=== PATIENT | female | born 1990 | race Caucasian/White ===

== ENCOUNTER 2019-02-01 12:29 | Outpatient (CLI) | payer MEDICAID | END 2019-02-01 14:15 | disposition home or self-care (01) | LOC: OBT 12:29 → L-D 12:29 → OBT 14:15 | DX: O24.419 Gestational diabetes mellitus in pregnancy, unspecified control (principal); Z3A.36 36 weeks gestation of pregnancy | CPT/HCPCS: 76815 ==

== ENCOUNTER 2019-02-17 12:19 | Outpatient (CLI) | payer MEDICAID | END 2019-02-17 13:40 | disposition home or self-care (01) | LOC: OBT 12:19 → L-D 12:19 → OBT 13:40 | DX: O24.410 Gestational diabetes mellitus in pregnancy, diet controlled (principal); Z3A.39 39 weeks gestation of pregnancy | CPT/HCPCS: 76818 ==

== ENCOUNTER 2019-02-19 16:14 | Inpatient (IN) | payer MEDICAID ==
[2019-02-19] MEDS: LACTATED RINGER'S 1,000 ML IV ×2 (17:49→21:00)
[2019-02-19 17:52] LABS: ADD MAN DIFF? NO
[2019-02-19 17:54] LABS: WHITE BLOOD COUNT 10.9 10^3/ul (4.8-10.8)
[2019-02-19 17:54] LABS: BASOPHILS % 0.2 % (0.0-2.0); EOSINOPHILS # 0.1 10^3/ul (0.0-0.5); EOSINOPHILS % 0.9 % (0.0-7.0); HEMATOCRIT 36.2 % (37.0-47.0); HEMOGLOBIN 12.5 g/dl (12.0-16.0); LYMPHOCYTES # 3.2 10^3/ul (0.8-2.9); LYMPHOCYTES % 29.6 % (15.0-51.0); MEAN CORPUSCULAR HEMOGLOBIN 29.8 pg (29.0-33.0); MEAN CORPUSCULAR HGB CONC 34.5 g/dl (32.0-37.0); MEAN CORPUSCULAR VOLUME 86.2 fl (82.0-101.0); MEAN PLATELET VOLUME 11.4 fl (7.4-10.4); MONOCYTE # 0.6 10^3/ul (0.3-0.9); MONOCYTES % 5.9 % (0.0-11.0); NEUTROPHIL # 6.8 10^3/ul (1.6-7.5); NEUTROPHILS % 62.9 % (39.0-77.0); PLATELET COUNT 232 10^3/UL (140-415); RED CELL DISTRIBUTION WIDTH 12.7 % (11.5-14.5)
[2019-02-19] MEDS ORDERED: CARBOPROST 250 MCG INJ IM (18:00)
[2019-02-19] MEDS ORDERED: LIDOCAINE 1% (MPF) 30 ML INJ INJ (18:00)
[2019-02-19] MEDS ORDERED: MISOPROSTOL 200 MCG TAB PR (18:00)
[2019-02-19] MEDS ORDERED: BUTORPHANOL 2 MG INJ IV (18:00)
[2019-02-19] MEDS ORDERED: OXYTOCIN 30 UNITS/LR 500 ML IV ×2 (18:00)
[2019-02-19] MEDS ORDERED: METHYLERGONOVINE 0.2 MG INJ IM (18:00)
[2019-02-19] MEDS: DEXTROSE 5%-LR 1,000 ML IV ×2 (18:11→22:23)
[2019-02-19 18:21] LABS: INR 0.94; PROTIME 12.7 Sec (11.9-14.9)
[2019-02-19 18:36] LABS: HEPATITIS B SURFACE ANTIGEN NEGATIVE (NEGATIVE)
[2019-02-19] MEDS: MISOPROSTOL 50 MCG CAPSULE PO (18:52)
[2019-02-19] MEDS ORDERED: FENTAnyl 2MCG/ML-ROPIV 0.2% 100 ML (21:00)
[2019-02-19] MEDS ORDERED: NALOXONE (0.4 MG/ML) INJ IV (21:30)
[2019-02-19] MEDS: OXYTOCIN 30 UNITS/LR 500 ML IV (23:53)
[2019-02-20] MEDS: FENTAnyl 2MCG/ML-ROPIV 0.2% 100 ML BAG EPI (03:50)
[2019-02-20] MEDS: OXYTOCIN 30 UNITS/LR 500 ML IV ×2 (06:37→12:18)
[2019-02-20] MEDS ORDERED: CARBOPROST 250 MCG INJ IM (07:00)
[2019-02-20] MEDS ORDERED: METHYLERGONOVINE 0.2 MG INJ IM (07:00)
[2019-02-20] MEDS ORDERED: DIBUCAINE 1% 30 GM OINT TOP (07:00)
[2019-02-20] MEDS ORDERED: OXYTOCIN 30 UNITS/LR 500 ML IV (07:00)
[2019-02-20] MEDS ORDERED: ONDANSETRON 4 MG INJ IV (07:00)
[2019-02-20] MEDS ORDERED: ACETAMINOPHEN 325 MG TAB PO (07:00)
[2019-02-20] MEDS ORDERED: MISOPROSTOL 200 MCG TAB PR (07:00)
[2019-02-20] MEDS: IBUPROFEN 600 MG TAB PO ×3 (08:52→22:54)
[2019-02-20] MEDS: LACTATED RINGER'S 1,000 ML IV* ×2 (09:30→14:52)
[2019-02-20] MEDS: BENZOCAINE 20% 56 ML SPRAY TOP (10:27)
[2019-02-20] MEDS: LANOLIN HPA 1 PKT TOP (10:27)
[2019-02-20] MEDS: WITCH HAZEL/GLYCERIN PAD PR (10:28)
[2019-02-20] MEDS: ACETAMINOPHEN 325 MG TAB PO ×2 (10:38→17:49)
[2019-02-20 20:39] LABS: RAPID PLASMA REAGIN NONREACTIVE (NR)
[2019-02-20] MEDS: SENNA/DOCUSATE NA (8.6MG/50MG) TAB PO (21:29)
[2019-02-20] MEDS: MAGNESIUM HYDROXIDE 30ML CUP PO (21:30)
[2019-02-21] MEDS: IBUPROFEN 600 MG TAB PO ×2 (05:18→21:58)
[2019-02-21 08:36] LABS: ADD MAN DIFF? NO
[2019-02-21 08:44] LABS: BASOPHILS % 0.2 % (0.0-2.0); EOSINOPHILS # 0.1 10^3/ul (0.0-0.5); EOSINOPHILS % 0.8 % (0.0-7.0); HEMOGLOBIN 9.5 g/dl (12.0-16.0); LYMPHOCYTES # 2.7 10^3/ul (0.8-2.9); LYMPHOCYTES % 24.9 % (15.0-51.0); MEAN CORPUSCULAR HEMOGLOBIN 29.6 pg (29.0-33.0); MEAN CORPUSCULAR HGB CONC 33.9 g/dl (32.0-37.0); MEAN CORPUSCULAR VOLUME 87.2 fl (82.0-101.0); MEAN PLATELET VOLUME 11.5 fl (7.4-10.4); MONOCYTE # 0.6 10^3/ul (0.3-0.9); MONOCYTES % 5.3 % (0.0-11.0); NEUTROPHIL # 7.3 10^3/ul (1.6-7.5); NEUTROPHILS % 68.2 % (39.0-77.0); PLATELET COUNT 208 10^3/UL (140-415); RED BLOOD COUNT 3.21 10^6/ul (4.20-5.40)
[2019-02-21 08:44] LABS: WHITE BLOOD COUNT 10.8 10^3/ul (4.8-10.8)
[2019-02-21] MEDS: LANOLIN HPA 1 PKT TOP (09:12)
[2019-02-21] MEDS: SENNA/DOCUSATE NA (8.6MG/50MG) TAB PO ×3 (09:17→21:57)
[2019-02-21] MEDS: ACETAMINOPHEN 325 MG TAB PO ×2 (09:17→17:43)
[2019-02-21] MEDS: WITCH HAZEL/GLYCERIN PAD PR (21:58)
[2019-02-22] MEDS: SENNA/DOCUSATE NA (8.6MG/50MG) TAB PO (08:07)
[2019-02-22] MEDS: IBUPROFEN 600 MG TAB PO (08:07)
== END 2019-02-22 15:20 | disposition home or self-care (01) | DRG 807 ==
LOC: OBT 16:14 → PP1 02-20 09:11 → L-D 16:15 → OBT 17:08 → L-D 17:08
PROVIDERS: Obstetrics & Gynecology
PROC: 10E0XZZ Delivery of Products of Conception, External Approach (ICD-10-PCS; principal; 2019-02-20)
PROC: 0W8NXZZ Division of Female Perineum, External Approach (ICD-10-PCS; 2019-02-20)
DX: O24.420 Gestational diabetes mellitus in childbirth, diet controlled (principal); Z37.0 Single live birth; Z3A.39 39 weeks gestation of pregnancy
CPT/HCPCS: 62322; 76815; 76818; 82962; 85025; 85610; 85730; 86592; 86850; 86900; 86901; 87340; 99464

== ENCOUNTER 2019-03-30 22:27 | Emergency (ER) | payer MEDICAID ==
[2019-03-30 23:01] LABS: URINE BLOOD (Dip) POC Negative (NEGATIVE); URINE GLUCOSE (Dip) POC Negative (NEGATIVE); URINE KETONES (Dip) POC Negative (NEGATIVE); URINE LEUKOCYTE EST (Dip) POC Trace (NEGATIVE); URINE NITRITE (Dip) POC Negative (NEGATIVE); URINE TOTAL PROTEIN POC Negative (NEGATIVE)
[2019-03-30 23:12] LABS: ADD MAN DIFF? NO
[2019-03-30] MEDS: FAMOTIDINE 20 MG INJ IV (23:12)
[2019-03-30 23:13] LABS: WHITE BLOOD COUNT 12.3 10^3/ul (4.8-10.8)
[2019-03-30 23:13] LABS: BASOPHILS % 0.2 % (0.0-2.0); EOSINOPHILS # 0.2 10^3/ul (0.0-0.5); EOSINOPHILS % 1.6 % (0.0-7.0); HEMATOCRIT 37.7 % (37.0-47.0); HEMOGLOBIN 12.7 g/dl (12.0-16.0); LYMPHOCYTES # 2.5 10^3/ul (0.8-2.9); LYMPHOCYTES % 20.7 % (15.0-51.0); MEAN CORPUSCULAR HEMOGLOBIN 28.9 pg (29.0-33.0); MEAN CORPUSCULAR HGB CONC 33.7 g/dl (32.0-37.0); MEAN CORPUSCULAR VOLUME 85.7 fl (82.0-101.0); MEAN PLATELET VOLUME 10.2 fl (7.4-10.4); MONOCYTE # 0.6 10^3/ul (0.3-0.9); MONOCYTES % 4.7 % (0.0-11.0); NEUTROPHIL # 8.9 10^3/ul (1.6-7.5); NEUTROPHILS % 72.6 % (39.0-77.0); PLATELET COUNT 239 10^3/UL (140-415); RED CELL DISTRIBUTION WIDTH 11.8 % (11.5-14.5)
[2019-03-30] MEDS: SOD CHLORIDE 0.9% 1,000 ML IV (23:13)
[2019-03-30 23:32] LABS: ALANINE AMINOTRANSFERASE 67 IU/L (13-69); ALBUMIN 4.2 g/dl (3.3-4.9); ALKALINE PHOSPHATASE 149 IU/L (42-121); ANION GAP 7 (5-13); ASPARTATE AMINO TRANSFERASE 92 IU/L (15-46); BILIRUBIN,INDIRECT 0.3 mg/dl (0-1.1); BILIRUBIN,TOTAL 0.3 mg/dl (0.2-1.3); BLOOD UREA NITROGEN 15 mg/dl (7-20); CALCIUM 9.1 mg/dl (8.4-10.2); CARBON DIOXIDE 28 mmol/L (21-31); CHLORIDE 107 mmol/L (97-110); CREATININE 0.58 mg/dl (0.44-1.00); Estimated GFR > 60 mL/min (>60); GLUCOSE 102 mg/dl (70-220); LIPASE 68 U/L (23-300); POTASSIUM 3.5 mmol/L (3.5-5.1); SODIUM 142 mmol/L (135-144)
== END 2019-03-31 00:15 | disposition home or self-care (01) ==
LOC: E/R 03-31 00:15
DX: K80.20 Calculus of gallbladder without cholecystitis without obstruction (principal)
CPT/HCPCS: 36415; 76705; 80053; 81003; 81025; 83690; 85025; 96374; 99285-25